=== PATIENT | female | born 1960 ===

== ENCOUNTER 2016-10-20 19:47 | Observation (INO) | payer SELFPAY ==
[2016-10-20] MEDS ORDERED: Sodium Chloride 0.9% 1,000 ML IV STA (20:42)
[2016-10-20 21:12] LABS: BASO # 0.1 K/uL (0.0-0.2); BASO % 0.4 % (0.0-2.0); EOS # 0.2 K/uL (0.0-0.7); EOS % 1.8 % (0.0-4.0); HEMATOCRIT 39.5 % (34.0-47.0); LYMPH # 1.4 K/uL (1.0-4.3); LYMPH % 10.7 % (20.0-40.0); MEAN CORPUSCULAR HEMOGLOBIN 29.7 pg (27.0-31.0); MEAN PLATELET VOLUME 9.2 fl (7.2-11.7); MONO # 0.6 K/uL (0.0-0.8); MONO % 4.6 % (0.0-10.0); NEUT # 10.9 K/uL (1.8-7.0); NEUT % 82.5 % (50.0-75.0); RED CELL DISTRIBUTION WIDTH 14.1 % (11.5-14.5); WHITE BLOOD COUNT 13.2 K/uL (4.8-10.8)
[2016-10-20 21:28] LABS: ALB/GLOB RATIO 1.2 (1.0-2.1); ALKALINE PHOSPHATASE 83 U/L (38-126); ALT/SGPT 30 U/L (9-52); AST/SGOT 23 U/L (14-36); BILIRUBIN,TOTAL 0.4 mg/dl (0.2-1.3); BLOOD UREA NITROGEN 15 mg/dl (7-17); CALCIUM 9.4 mg/dL (8.4-10.2); CARBON DIOXIDE 25 mmol/L (22-30); CHLORIDE 103 mmol/L (98-107); GFR AFRICAN-AMERICAN > 60; GLUCOSE,RANDOM 129 mg/dL (65-105); POTASSIUM 3.6 MMOL/L (3.6-5.0); SODIUM 144 mmol/l (132-148); TOTAL PROTEIN 7.9 G/DL (6.3-8.2)
--- NOTE | 2016-10-20 23:50 | ED PDOC ---
HPI: Chest Pain Time Seen by Provider: 10/20/16 20:20 Chief Complaint (Nursing): Chest Pain Chief Complaint (Provider): Left shoulder and chest pain - Began at 5:30 History Per: Patient History/Exam Limitations: no limitations Onset/Duration Of Symptoms: Hrs Current Symptoms Are (Timing): Still Present Severity: Moderate Pain Scale Rating Of: 5 Additional Complaint(s): Pt states after dinner she began to have left shoulder pain which radiated towards the chest. PT states she was also feeling lightheaded. Pt denies similar in the past. Pt took motrin at that time (5:30). Pt states that she has not health problems but has not seen a doctor in a "long time". Past Medical History Reviewed: Historical Data, Nursing Documentation, Vital Signs Vital Signs: Last Vital Signs Temp 98.7 F 10/21/16 00:40 Pulse 77 10/21/16 00:40 Resp 13 10/21/16 00:40 BP 132/74 10/21/16 00:40 Pulse Ox 100 10/21/16 00:40 - Medical History PMH: No Chronic Diseases - Surgical History Surgical History: No Surg Hx - Family History Family History: States: Unknown Family Hx - Living Arrangements Living Arrangements: With Family - Social History Current smoker - smoking cessation education provided: No - Home Medications Home Medications: Ambulatory Orders Medication Instructions Recorded No Known Home Med 10/21/16 - Allergies Allergies/Adverse Reactions: Allergies Allergy/AdvReac Type Severity Reaction Status Date / Time No Known Allergies Allergy Verified 10/20/16 20:41 Review of Systems ROS Statement: Except As Marked, All Systems Reviewed And Found Negative Cardiovascular: Positive for: Chest Pain, Light Headedness. Negative for: Palpitations Physical Exam - Reviewed Nursing Documentation Reviewed: Yes Vital Signs Reviewed: Yes - Physical Exam Appears: Positive for: Well, Non-toxic, No Acute Distress Head Exam: Positive for: ATRAUMATIC, NORMAL INSPECTION, NORMOCEPHALIC Skin: Positive for: Normal Color, Warm, DRY Eye Exam: Positive for: Normal appearance ENT: Positive for: Normal ENT Inspection Neck: Positive for: Normal, Painless ROM Cardiovascular/Chest: Positive for: Regular Rate, Rhythm Respiratory: Positive for: CNT, Normal Breath Sounds Gastrointestinal/Abdominal: Positive for: Normal Exam, Bowel Sounds, Soft Back: Positive for: Normal Inspection Extremity: Positive for: Normal ROM. Negative for: Tenderness, Swelling Neurologic/Psych: Positive for: Alert, Oriented - Laboratory Results Result Diagrams: 10/20/16 21:00 10/20/16 21:00 - ECG O2 Sat by Pulse Oximetry: 99 Disposition - Clinical Impression Clinical Impression: Chest pain - Patient ED Disposition Is Patient to be Admitted: Yes - Disposition Disposition Time: 02:18 Condition: GOOD - Pt Status Changed To: Hospital Disposition Of: Inpatient - Admit Certification Admit to Inpatient:: After my assessment, the patient will require hospitalization for at least two midnights. This is because of the severity of symptoms shown, intensity of services needed, and/or the medical risk in this patient being treated as an outpatient. - POA Present On Arrival: None
--- NOTE | 2016-10-21 01:27 | CP.PCM.HP ---
History of Present Illness - History of Present Illness History of Present Illness: PCP: None Chief Complaint: Chest pain HPI: 56 years old female with hx of arthritis comes with one day of left shoulder radiating to the retrosternal region of the chest. This began after dinner and at rest. She took two Advil and the shoulder pain ceased but the chest pain which was like gas pain with a soreness, pressure type of pain, which increased with deep inhalation associated with light headedness. No diaphorsis, nausea nor vomiting. No hx of HTN, DM, Renal disease. Cholesterol level unknown, and Quit smoking years ago. PMH: Arthritis PSH: [id number]; Cesarian section SH: Remote Smoker; no Alcohol use; no illegal drug use; Live with her SON; Works in a [employer] FH: No Known family hx Allergies: NKDA Present on Admission - Present on Admission Any Indicators Present on Admission: No History of DVT/PE: No History of Uncontrolled Diabetes: No Urinary Catheter: No Decubitus Ulcer Present: No Review of Systems - Constitutional Constitutional: Headache. absent: Anorexia, Chills, Fatigue, Fever, Weakness - EENT Eyes: Requires Corrective Lenses. absent: Blurred Vision, Diplopia, Floaters, Photophobia, Sees Flashes Ears: absent: Decreased Hearing, Ear Discharge, Ear Pain, Tinnitus Nose/Mouth/Throat: absent: Epistaxis, Nasal Congestion, Nasal Discharge, Sinus Pain, Sinus Pressure, Sore Throat - Cardiovascular Cardiovascular: Chest Pain, Dyspnea, Palpitations. absent: Edema, Orthopnea Additional comments: Occasional Palpitations, SOB on climbing stairs. - Respiratory Respiratory: absent: Cough, Wheezing - Gastrointestinal Gastrointestinal: absent: Constipation, Diarrhea, Nausea, Vomiting - Genitourinary Genitourinary: absent: Dysuria, Flank Pain, Hematuria, Urinary Frequency - Musculoskeletal Musculoskeletal: Arthralgias. absent: Muscle Weakness, Neck Pain, Stiffness - Integumentary Integumentary: absent: Pruritus, Skin Pain, Skin Ulcer, Sores, Striae, Swelling - Neurological Neurological: absent: Confusion, Dizziness, Focal Weakness, Memory Loss - Psychiatric Psychiatric: absent: Anxiety, Confusion, Depression, Panic Attacks - Endocrine Endocrine: absent: Palpitations, Polydipsia, Polyphagia, Polyuria - Hematologic/Lymphatic Hematologic: absent: Easy Bleeding, Easy Bruising Past Patient History - Past Medical History & Family History Past Medical History?: Yes - Past Social History Smoking Status: Former Smoker Chewing Tobacco Use: No Cigar Use: No Alcohol: None Drugs: Denies Home Situation {Lives}: With Family - CARDIAC Hx Cardiac Disorders: No - PULMONARY Hx Respiratory Disorders: No - NEUROLOGICAL Hx Neurological Disorder: No - HEENT Hx HEENT Problems: No - RENAL Hx Chronic Kidney Disease: No - ENDOCRINE/METABOLIC Hx Endocrine Disorders: No - HEMATOLOGICAL/ONCOLOGICAL Hx Blood Disorders: No - INTEGUMENTARY Hx Dermatological Problems: No - GASTROINTESTINAL Hx Gastrointestinal Disorders: No - GENITOURINARY/GYNECOLOGICAL Hx Genitourinary Disorders: No - PSYCHIATRIC Hx Psychophysiologic Disorder: No Hx Substance Use: No - SURGICAL HISTORY Hx Appendectomy: Yes Hx Section: Yes - ANESTHESIA Hx Anesthesia: Yes Hx Anesthesia Reactions: No Meds Allergies/Adverse Reactions: Allergies Allergy/AdvReac Type Severity Reaction Status Date / Time No Known Allergies Allergy Verified 10/20/16 20:41 Physical Exam - Constitutional Appears: No Acute Distress - Head Exam Head Exam: ATRAUMATIC, NORMAL INSPECTION, NORMOCEPHALIC - Eye Exam Eye Exam: EOMI, Normal appearance Pupil Exam: NORMAL ACCOMODATION, PERRL - ENT Exam ENT Exam: Mucous Membranes Moist, Normal Exam, Normal External Ear Exam, Normal Oropharynx - Neck Exam Neck exam: Positive for: Full Rom, Normal Inspection. Negative for: Lymphadenopathy - Respiratory Exam Respiratory Exam: Clear to Auscultation Bilateral. absent: Rales, Rhonchi, Wheezes - Cardiovascular Exam Cardiovascular Exam: Gallop, REGULAR RHYTHM, RRR, +S1, +S2. absent: JVD Additional comments: S3 at base - GI/Abdominal Exam GI & Abdominal Exam: Normal Bowel Sounds, Soft. absent: Organomegaly, Tenderness - Rectal Exam Rectal Exam: Deferred - Extremities Exam Extremities exam: Positive for: full ROM, normal inspection. Negative for: calf tenderness, joint swelling, pedal edema - Back Exam Back exam: NORMAL INSPECTION. absent: CVA tenderness (L), CVA tenderness (R) - Neurological Exam Neurological exam: Alert, CN II-XII Intact, Oriented x3, Reflexes Normal - Psychiatric Exam Psychiatric exam: Normal Affect, Normal Mood - Skin Skin Exam: Dry, Intact, Normal Color, Warm Results - Vital Signs Recent Vital Signs: Last Vital Signs Temp 98.7 F 10/21/16 00:40 Pulse 77 10/21/16 00:40 Resp 13 10/21/16 00:40 BP 132/74 10/21/16 00:40 Pulse Ox 100 10/21/16 00:40 - Labs Result Diagrams: 10/20/16 21:00 10/20/16 21:00 - EKG Data EKG comments: Sinus with PVC 82/min - Imaging and Cardiology Chest x-ray Status: Image reviewed by me Additional comment: poor [id number] No active disease seen. Assessment & Plan - Assessment and Plan (Free Text) Assessment: #. Chest pain #. Leukocytosis #. Arthritis Plan: 56 years old female with hx of arthritis comes with one day of left shoulder radiating to the retrosternal region of the chest. This began after dinner and at rest. She took two Advil and the shoulder pain ceased but the chest pain which was like gas pain with a soreness, pressure type of pain, increased with deep inhalation associated with light headedness. #. Chest pain r/o ACS - Consult Cardiology Dr Denton - Serial Troponin and EKG - ASA - Lipid profile #. Leukocytosis is reactive - follow WBC #. Arthritis - treat with Tylenol #. Stress ulcer Prophylaxis with Pepcid #. Code Status: Full - Date & Time Date: 10/21/16 Time: 01:
[2016-10-21] MEDS ORDERED: Nitroglycerin 2% 15 INCH/30 GM TUBE TD SCH (02:00)
[2016-10-21 03:24] VITALS: RESP 18
[2016-10-21 07:10] LABS: BASO % 0.4 % (0.0-2.0); EOS # 0.2 K/uL (0.0-0.7); HEMATOCRIT 36.9 % (34.0-47.0); LYMPH # 1.5 K/uL (1.0-4.3); LYMPH % 15.4 % (20.0-40.0); MEAN CELL VOLUME 89.2 fl (81.0-99.0); MEAN CORPUSCULAR HEMOGLOBIN 29.8 pg (27.0-31.0); MEAN CORPUSCULAR HGB CONC 33.4 g/dL (33.0-37.0); MEAN PLATELET VOLUME 9.8 fl (7.2-11.7); MONO # 0.7 K/uL (0.0-0.8); MONO % 7.5 % (0.0-10.0); NEUT # 7.1 K/uL (1.8-7.0); NEUT % 74.7 % (50.0-75.0); RED CELL DISTRIBUTION WIDTH 14.1 % (11.5-14.5); WHITE BLOOD COUNT 9.4 K/uL (4.8-10.8)
[2016-10-21 07:11] LABS: CHOLESTEROL 223 mg/dL (0-199)
--- NOTE | 2016-10-21 08:33 | RAD ---
HISTORY: Chest pressure COMPARISON: No prior. FINDINGS: LUNGS: Mild pulmonary vascular congestion is noted. No evidence of focal infiltrate or consolidation. PLEURA: No significant pleural effusion identified, no pneumothorax apparent. CARDIOVASCULAR: The cardiac silhouette is enlarged. OSSEOUS STRUCTURES: No significant abnormalities. VISUALIZED UPPER ABDOMEN: Normal. OTHER FINDINGS: None. IMPRESSION: Suspicious for mild cardiomegaly and mild pulmonary vascular congestion. Baseline study.
[2016-10-21] MEDS ORDERED: Enoxaparin 40 mg Syringe SC SCH (09:00)
--- NOTE | 2016-10-21 11:07 | CP.PCM.CON ---
History of Present Illness - History of Present Illness History of Present Illness: HPI: 56 years old female with hx of arthritis comes with one day of left shoulder radiating to the retrosternal region of the chest. This began after dinner and at rest. She took two Advil and the shoulder pain ceased No diaphorsis, nausea nor vomiting. No hx of HTN, DM, Renal disease. Cholesterol level unknown, and Quit smoking years ago. Has never had this pain before no relation to exertion PMH: Arthritis PSH: [id number]; Cesarian section SH: Remote Smoker; no Alcohol use; no illegal drug use; Live with her SON; Works in a [employer] EKG: wnl Troponin: neg Review of Systems - Cardiovascular Cardiovascular: Chest Pain at Rest Past Patient History - Past Medical History & Family History Past Medical History?: Yes - Past Social History Smoking Status: Former Smoker Chewing Tobacco Use: No Cigar Use: No Alcohol: None Drugs: Denies Home Situation {Lives}: With Family - CARDIAC Hx Cardiac Disorders: No - PULMONARY Hx Respiratory Disorders: No - NEUROLOGICAL Hx Neurological Disorder: No - HEENT Hx HEENT Problems: No - RENAL Hx Chronic Kidney Disease: No - ENDOCRINE/METABOLIC Hx Endocrine Disorders: No - HEMATOLOGICAL/ONCOLOGICAL Hx Blood Disorders: No - INTEGUMENTARY Hx Dermatological Problems: No - MUSCULOSKELETAL/RHEUMATOLOGICAL Hx Falls: No - GASTROINTESTINAL Hx Gastrointestinal Disorders: No - GENITOURINARY/GYNECOLOGICAL Hx Genitourinary Disorders: No - PSYCHIATRIC Hx Psychophysiologic Disorder: No Hx Substance Use: No - SURGICAL HISTORY Hx Appendectomy: Yes Hx Section: Yes - ANESTHESIA Hx Anesthesia: Yes Hx Anesthesia Reactions: No Meds Allergies/Adverse Reactions: Allergies Allergy/AdvReac Type Severity Reaction Status Date / Time No Known Allergies Allergy Verified 10/20/16 20:41 - Medications Medications: Current Medications Aspirin (Ecotrin) 81 mg PO DAILY [facility] Last Admin: 10/21/16 09:08 Dose: 81 mg Atorvastatin Calcium (Lipitor) 40 mg PO DAILY [facility] Last Admin: 10/21/16 09:14 Dose: 40 mg Enoxaparin Sodium (Lovenox) 40 mg SC DAILY [facility] PRN Reason: Protocol Last Admin: 10/21/16 09:08 Dose: 40 mg Famotidine (Pepcid) 20 mg PO BID [facility] Last Admin: 10/21/16 09:08 Dose: 20 mg Physical Exam - Respiratory Exam Respiratory Exam: NORMAL BREATHING PATTERN - Cardiovascular Exam Cardiovascular Exam: REGULAR RHYTHM Results - Vital Signs Recent Vital Signs: Last Vital Signs Temp 99.0 F 10/21/16 08:00 Pulse 82 10/21/16 08:00 Resp 18 10/21/16 08:00 BP 130/76 10/21/16 08:00 Pulse Ox 96 10/21/16 08:00 - Labs Result Diagrams: 10/21/16 05:55 10/20/16 21:00 Labs: Laboratory Results - last 24 hr 10/21/16 05:55 WBC 9.4 RBC 4.14 Hgb 12.3 Hct 36.9 MCV 89.2 MCH 29.8 MCHC 33.4 RDW 14.1 Plt Count 208 MPV 9.8 Neut % (Auto) 74.7 Lymph % (Auto) 15.4 L Real % (Auto) 7.5 Eos % (Auto) 2.0 Baso % (Auto) 0.4 Neut # 7.1 H Lymph # 1.5 Real # 0.7 Eos # 0.2 Baso # 0.0 Troponin I < 0.0120 Triglycerides 80 Cholesterol 223 H LDL Cholesterol Direct 144 H HDL Cholesterol 48 Assessment & Plan (1) Chest pain Assessment and Plan: Pain appears to be non cardiac Status: Resolved
[2016-10-21 12:31] VITALS: BP 143/75; PULSE 84; TEMP 98.8; O2SAT 97
--- NOTE | 2016-10-21 14:56 | CP.PCM.DIS ---
Provider - Provider Date of Admission: 10/20/16 23:47 Attending physician: Caesar Gutierrez Consults: Dr Denton Time Spent in preparation of Discharge (in minutes): 30 Diagnosis - Discharge Diagnosis (1) Chest pain Status: Resolved Comment: resolved. serial Troponins were negative. ECHO will be read by Dr Denton. ASA 81mg PO daily Hospital Course - Lab Results Lab Results: Most Recent Lab Values WBC 9.4 K/uL (4.8-10.8) 10/21/16 05:55 RBC 4.14 Mil/uL (3.80-5.20) 10/21/16 05:55 Hgb 12.3 g/dL (12.0-16.0) 10/21/16 05:55 Hct 36.9 % (34.0-47.0) 10/21/16 05:55 MCV 89.2 fl (81.0-99.0) 10/21/16 05:55 MCH 29.8 pg (27.0-31.0) 10/21/16 05:55 MCHC 33.4 g/dL (33.0-37.0) 10/21/16 05:55 RDW 14.1 % (11.5-14.5) 10/21/16 05:55 Plt Count 208 K/uL (130-400) 10/21/16 05:55 MPV 9.8 fl (7.2-11.7) 10/21/16 05:55 Neut % (Auto) 74.7 % (50.0-75.0) 10/21/16 05:55 Lymph % (Auto) 15.4 % (20.0-40.0) L 10/21/16 05:55 [place] % (Auto) 7.5 % (0.0-10.0) 10/21/16 05:55 Eos % (Auto) 2.0 % (0.0-4.0) 10/21/16 05:55 Baso % (Auto) 0.4 % (0.0-2.0) 10/21/16 05:55 Neut # 7.1 K/uL (1.8-7.0) H 10/21/16 05:55 Lymph # 1.5 K/uL (1.0-4.3) 10/21/16 05:55 [place] # 0.7 K/uL (0.0-0.8) 10/21/16 05:55 Eos # 0.2 K/uL (0.0-0.7) 10/21/16 05:55 Baso # 0.0 K/uL (0.0-0.2) 10/21/16 05:55 PT 11.1 SECONDS (9.6-11.2) 10/20/16 21:00 INR 1.07 (0.92-1.08) 10/20/16 21:00 APTT 27.0 SECONDS (23.3-32.5) 10/20/16 21:00 Sodium 144 mmol/l (132-148) 10/20/16 21:00 Potassium 3.6 MMOL/L (3.6-5.0) 10/20/16 21:00 Chloride 103 mmol/L (98-107) 10/20/16 21:00 Carbon Dioxide 25 mmol/L (22-30) 10/20/16 21:00 Anion Gap 19 (10-20) 10/20/16 21:00 BUN 15 mg/dl (7-17) 10/20/16 21:00 Creatinine 0.5 mg/dL (0.7-1.2) L 10/20/16 21:00 Est GFR ( Amer) > 60 10/20/16 21:00 Est GFR (Non-Af Amer) > 60 10/20/16 21:00 Random Glucose 129 mg/dL (65-105) H 10/20/16 21:00 Hemoglobin A1c 6.1 % (4.2-6.5) 10/21/16 05:55 Calcium 9.4 mg/dL (8.4-10.2) 10/20/16 21:00 Total Bilirubin 0.4 mg/dl (0.2-1.3) 10/20/16 21:00 AST 23 U/L (14-36) 10/20/16 21:00 ALT 30 U/L (9-52) 10/20/16 21:00 Alkaline Phosphatase 83 U/L (38-126) 10/20/16 21:00 Troponin I < 0.0120 ng/mL (0.00-0.120) 10/21/16 12:50 Total Protein 7.9 G/DL (6.3-8.2) 10/20/16 21:00 Albumin 4.3 g/dL (3.5-5.0) 10/20/16 21:00 Globulin 3.7 gm/dL (2.2-3.9) 10/20/16 21:00 Albumin/Globulin Ratio 1.2 (1.0-2.1) 10/20/16 21:00 Triglycerides 80 mg/DL (0-149) 10/21/16 05:55 Cholesterol 223 mg/dL (0-199) H 10/21/16 05:55 LDL Cholesterol Direct 144 mg/dL (0-129) H 10/21/16 05:55 HDL Cholesterol 48 MG/DL (30-70) 10/21/16 05:55 - Hospital Course Hospital Course: 56 yo female with history of arthritis came in complaining of retrosternal chest pain. Pain described as pressure in character and worsen with inspiration. No recurrence of chest pain noted while patient was in the unit. Serial Troponins were negative. ECHO was done but no official reading at this time. Dr Denton, chief of production on consult recommended to discharge patient, as chest pain was non-cardiac in etiology. He will follow up the ECHO reading. Discharge Exam - Head Exam Head Exam: ATRAUMATIC, NORMAL INSPECTION, NORMOCEPHALIC - Eye Exam Eye Exam: absent: Scleral icterus - ENT Exam ENT Exam: Mucous Membranes Moist - Respiratory Exam Respiratory Exam: absent: Wheezes, Respiratory Distress - Cardiovascular Exam Cardiovascular Exam: REGULAR RHYTHM, +S1, +S2 - GI/Abdominal Exam GI & Abdominal Exam: Soft. absent: Tenderness - Rectal Exam Rectal Exam: Deferred - Back Exam Back exam: absent: tenderness - Neurological Exam Neurological exam: Alert, Oriented x3 - Psychiatric Exam Psychiatric exam: Normal Affect - Skin Skin Exam: Dry, Intact Discharge Plan - Follow Up Plan Condition: GOOD Disposition: HOME/ ROUTINE
--- NOTE | 2016-10-22 10:48 | CARD ---
APPROVED REPORT EXAM: Two-dimensional and M-mode echocardiogram with Doppler and color Doppler. Other Information Quality : GoodRhythm : NSR INDICATION Chest Pain 2D DIMENSIONS IVSd1.15 (0.7-1.1cm)LVDd4.85 (3.9-5.9cm) LVOT Diameter2.11 (1.8-2.4cm)PWd0.82 (0.7-1.1cm) IVSs1.37 (0.8-1.2cm)LVDs2.90 (2.5-4.0cm) FS (%) 40.3 %PWs1.21 (0.8-1.2cm) M-Mode DIMENSIONS Left Atrium (MM)4.00 (2.5-4.0cm)IVSd0.71 (0.7-1.1cm) Aortic Root3.18 (2.2-3.7cm)LVDd5.59 (4.0-5.6cm) Aortic Cusp Exc.1.91 (1.5-2.0cm)PWd0.85 (0.7-1.1cm) IVSs1.68 cmFS (%) 46 % LVDs3.03 (2.0-3.8cm)PWs1.50 cm Mitral Valve MV E Jvbkxjip67.8cm/sMV DECEL [id number] A Kidxitnl40.5cm/s MV BOF50zoV/A ratio1.3MVA (PHT)4.21cm2 TDI Lateral E' Peak V10.67cm/sMedial E' Peak V10.35cm/sE/Lateral E'7.0 E/Medial E'7.2 Pulmonary Valve PV Peak Isrmkaek810.6cm/s Tricuspid Valve TR Peak Hgudmgrr652bx/sRAP [id number] Peak Gr.22mmHg [id number] LEFT VENTRICLE The left ventricle is normal size. There is normal left ventricular wall thickness. The left ventricular function is normal. The left ventricular ejection fraction is 55% There is normal LV segmental wall motion. The left ventricular diastolic function is normal. No left ventricle thrombus noted on this study. There is no ventricular septal defect visualized. There is no left ventricular aneurysm. There is no mass noted in the left ventricle. RIGHT VENTRICLE The right ventricle is normal size. There is normal right ventricular wall thickness. The right ventricular systolic function is normal. ATRIA The left atrium size is normal. The right atrium size is normal. The interatrial septum is intact with no evidence for an atrial septal defect. AORTIC VALVE The aortic valve is normal in structure and function. No aortic regurgitation is present. There is no aortic valvular stenosis. There is no aortic valvular vegetation. MITRAL VALVE The mitral valve is normal in structure and function. There is no evidence of mitral valve prolapse. There is no mitral valve stenosis. Mitral regurgitation is trace. TRICUSPID VALVE The tricuspid valve is normal in structure and function. There is mild tricuspid regurgitation. Right ventricular systolic pressure is estimated at 30-40 mmHg. There is no tricuspid valve prolapse or vegetation. There is no tricuspid valve stenosis. PULMONIC VALVE The pulmonary valve is normal in structure and function. There is no pulmonic valvular regurgitation. There is no pulmonic valvular stenosis. GREAT VESSELS The aortic root is normal in size. The ascending aorta is normal in size. The IVC is normal in size and collapses >50% with inspiration. PERICARDIAL EFFUSION The pericardium appears normal. There is no pleural effusion. <Conclusion> Essentially Normal Echocardiogram
--- NOTE | 2016-10-22 11:46 | CARD ---
APPROVED REPORT EKG Measurement Heart [id number] <Conclusion> Sinus rhythm with occasional premature ventricular complexes Possible Left atrial enlargement Borderline ECG
== END 2016-10-21 15:50 | disposition home or self-care (01) ==
LOC: H.ER 19:47 → H.ERHOLD 23:47 → H.TEL 10-21 03:16
PROVIDERS: ADMIT Internal Medicine; ATTEND Internal Medicine
DX: R07.9 Chest pain, unspecified (principal); Z87.891 Personal history of nicotine dependence; M19.90 Unspecified osteoarthritis, unspecified site; D72.829 Elevated white blood cell count, unspecified
CPT/HCPCS: 36415; 71010; 80053; 80061; 83036; 84484; 85025; 85610; 85730; 93005; 93306; 99282; G0378; J1650; J7040